=== PATIENT | male | born 1945 | race Caucasian/White ===

== ENCOUNTER 2021-05-23 16:51 | Inpatient (IN) | payer MEDICARE ==
[2021-05-23 17:06] LABS: Glucose,Whole Blood 121 mg/dL (75-99)
[2021-05-23] MEDS ORDERED: HYDROmorphone 1 MG/ML 1 ML SYRINGE IVP STA ×2 (17:15→17:41)
[2021-05-23 17:27] LABS: Basophils % (A) 0 %; Eosinophils # (A) 0.1 k/uL (0-0.7); Eosinophils % (A) 2 %; HCT 43.4 % (39.0-53.0); Lymphocytes # (A) 1.5 k/uL (1.0-4.8); Lymphocytes % (A) 19 %; MCH 31.7 pg (25.0-35.0); MCHC 34.7 g/dL (31.0-37.0); MCV 91.3 fL (80.0-100.0); Mean Platelet Volume 6.9; Monocytes # (A) 0.4 k/uL (0-1.0); Monocytes % (A) 5 %; Neutrophils # (A) 5.8 k/uL (1.3-7.7); Neutrophils % (A) 73 %; Platelet Count 166 k/uL (150-450); RBC 4.75 m/uL (4.30-5.90)
--- NOTE | 2021-05-23 17:32 | XR ---
Result: History: Pain status post fall. Comparison: None available. Technique: A single frontal radiograph of the pelvis was reviewed. Findings: There is displaced and varus angulated left femoral intertrochanteric fracture. No evidence of disloc ation. The left pubic rami are suboptimally evaluated due to overlapping structures. 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 Lower lumbar spine fusion noted. Impression: Left femoral intertrochanteric fracture.
--- NOTE | 2021-05-23 17:34 | XR ---
EXAMINATION TYPE: XR chest 1V portable DATE OF EXAM: 05/23/2021 COMPARISON: NONE HISTORY: Pain status post fall. TECHNIQUE: Single frontal view of the chest is obtained. FINDINGS: There is no focal air space opacity, pleural effusion, or pneumothorax seen. The cardiac silhouette size is within normal limits. The osseous structures are without acute abnormality. Bila teral shoulder arthroplasties are noted. Partially imaged presumed neurostimulator device seen. IMPRESSION: No acute process.
[2021-05-23 17:40] LABS: INR 0.9 (<1.2); Partial Thromboplastin Time 23.7 sec (22.0-30.0); Prothrombin Time 10.2 sec (9.0-12.0)
[2021-05-23 17:41] LABS: Albumin 3.9 g/dL (3.5-5.0); Calcium 8.8 mg/dL (8.4-10.2); Total Bilirubin 0.4 mg/dL (0.2-1.3); Total Protein 6.3 g/dL (6.3-8.2)
--- NOTE | 2021-05-23 17:41 | ED ---
Fall HPI - General Chief Complaint: Fall Stated Complaint: Fall Time Seen by Provider: 05/23/21 17:01 Source: patient, family, EMS Mode of arrival: EMS - History of Present Illness Initial Comments: Patient is a 76-year-old male with past history of A. fib, Parkinson's who presents emergency room after a fall. Patient was stepping into his garage when he fell down 2 stairs on to the concrete. Patient hit his head. He is on [place]. No loss of consciousness. Patient complains of left hip pain. He was unable to bear weight and EMS was called. They placed the patient is c- collar and provided him with 100 mg of fentanyl. Patient arrives and denies any headaches or visual changes. No neck pain. Denies any chest pain or shortness of breath. No abdominal pain. No pain in his upper extreme is. Admits to left hip pain however denies any knee or ankle pain. No numbness or tingling in his feet. No other alleviating, precipitating or modifying factors - Related Data Home Medications Medication Instructions Recorded Confirmed ALPRAZolam [Xanax] 1 mg PO HS PRN 05/23/21 05/23/21 Apixaban [Eliquis] 5 mg PO BID 05/23/21 05/23/21 Escitalopram [Lexapro] 20 mg PO DAILY 05/23/21 05/23/21 Losartan [Cozaar] 25 mg PO DAILY 05/23/21 05/23/21 Metoprolol Succinate [Toprol XL] 50 mg PO DAILY 05/23/21 05/23/21 Propafenone HCl [Propafenone HCl 325 mg PO Q12H 05/23/21 05/23/21 ER] Sennosides [Senna] 8.6 mg PO DAILY PRN 05/23/21 05/23/21 Simvastatin [Zocor] 20 mg PO HS 05/23/21 05/23/21 Allergies Allergy/AdvReac Type Severity Reaction Status Date / Time No Known Allergies Allergy Verified 05/23/21 19:40 Review of Systems ROS Statement: Those systems with pertinent positive or pertinent negative responses have been documented in the HPI. ROS Other: All systems not noted in ROS Statement are negative. Past Medical History Past Medical History: Atrial Fibrillation, Hyperlipidemia Additional Past Medical History / Comment(s): parkinsons History of Any Multi-Drug Resistant Organisms: None Reported Past Surgical History: Appendectomy, Orthopedic Surgery Additional Past Surgical History / Comment(s): shoulder surgery, back surgery, kidney stone removal, deep brain stimulation. Past Psychological History: Anxiety Smoking Status: Former smoker Past Alcohol Use History: None Reported Past Drug Use History: None Reported General Exam Limitations: no limitations Course Vital Signs 05/23/21 05/23/21 16:55 20:21 Temperature 98.4 F 97.8 F Pulse Rate 78 Respiratory 18 16 Rate Blood Pressure 109/94 O2 Sat by Pulse 97 97 Oximetry Medical Decision Making - Medical Decision Making Upon arrival the patient was placed in room 7. Thorough history and physical exam was performed. IV is established by EMS and they did give him 100 g of fentanyl. Patient is additionally given 1 mg of Dilaudid. Laboratory says were conducted. Chest and pelvic x-ray were performed which demonstrates a left IT fracture. Patient is additionally sent for a CT of his head and cervical spine because of his head injury which demonstrates no acute fracture dislocation. No mass effect, midline shift or hemorrhage. I did speak with neck branch from orthopedics. Recommended CT the patient's hip which continues to demonstrate a left femoral IT fracture. Patient remains neurovascularly intact. He'll be admitted to Dr. Santa at this time. Patient made nothing by mouth at midnight. Pain control ordered. Patient transferred to the floor in stable condition - Lab Data Result diagrams: 05/23/21 17:20 05/23/21 17:20 Lab Results 05/23/21 05/23/21 05/23/21 Range/Units 17:04 17:09 17:20 WBC 8.0 (3.8-10.6) k/uL RBC 4.75 (4.30-5.90) m/uL Hgb 15.0 (13.0-17.5) gm/dL Hct 43.4 (39.0-53.0) % MCV 91.3 (80.0-100.0) fL MCH 31.7 (25.0-35.0) pg MCHC 34.7 (31.0-37.0) g/dL RDW 13.0 (11.5-15.5) % Plt Count 166 (150-450) k/uL MPV 6.9 Neutrophils % 73 % Lymphocytes % 19 % Monocytes % 5 % Eosinophils % 2 % Basophils % 0 % Neutrophils # 5.8 (1.3-7.7) k/uL Lymphocytes # 1.5 (1.0-4.8) k/uL Monocytes # 0.4 (0-1.0) k/uL Eosinophils # 0.1 (0-0.7) k/uL Basophils # 0.0 (0-0.2) k/uL PT (9.0-12.0) sec INR (<1.2) APTT (22.0-30.0) sec Sodium (137-145) mmol/L Potassium (3.5-5.1) mmol/L Chloride (98-107) mmol/L Carbon Dioxide (22-30) mmol/L Anion Gap mmol/L BUN (9-20) mg/dL Creatinine (0.66-1.25) mg/dL Est GFR (CKD-EPI)AfAm (>60 ml/min/1.73 sqM) Est GFR (CKD-EPI)NonAf (>60 ml/min/1.73 sqM) Glucose (74-99) mg/dL POC Glucose (mg/dL) 121 H (75-99) mg/dL POC Glu Freight Tallier ID Tab, Carrol Calcium (8.4-10.2) mg/dL Total Bilirubin (0.2-1.3) mg/dL AST (17-59) U/L ALT (4-49) U/L Alkaline Phosphatase (38-126) U/L Troponin I (0.000-0.034) ng/mL Total Protein (6.3-8.2) g/dL Albumin (3.5-5.0) g/dL Blood Type A Positive Blood Type Recheck No Previous Record Bld Type Recheck Status CABO Indicated Antibody Screen NEGATIVE Spec Expiration Date 05/26/2021 - 230805/23/21 05/23/21 05/23/21 Range/Units 17:20 17:20 17:20 WBC (3.8-10.6) k/uL RBC (4.30-5.90) m/uL Hgb (13.0-17.5) gm/dL Hct (39.0-53.0) % MCV (80.0-100.0) fL MCH (25.0-35.0) pg MCHC (31.0-37.0) g/dL RDW (11.5-15.5) % Plt Count (150-450) k/uL MPV Neutrophils % % Lymphocytes % % Monocytes % % Eosinophils % % Basophils % % Neutrophils # (1.3-7.7) k/uL Lymphocytes # (1.0-4.8) k/uL Monocytes # (0-1.0) k/uL Eosinophils # (0-0.7) k/uL Basophils # (0-0.2) k/uL PT 10.2 (9.0-12.0) sec INR 0.9 (<1.2) APTT 23.7 (22.0-30.0) sec Sodium 140 (137-145) mmol/L Potassium 4.0 (3.5-5.1) mmol/L Chloride 110 H (98-107) mmol/L Carbon Dioxide 21 L (22-30) mmol/L Anion Gap 9 mmol/L BUN 21 H (9-20) mg/dL Creatinine 1.29 H (0.66-1.25) mg/dL Est GFR (CKD-EPI)AfAm 62 (>60 ml/min/1.73 sqM) Est GFR (CKD-EPI)NonAf 54 (>60 ml/min/1.73 sqM) Glucose 140 H (74-99) mg/dL POC Glucose (mg/dL) (75-99) mg/dL POC Glu Freight Tallier ID Calcium 8.8 (8.4-10.2) mg/dL Total Bilirubin 0.4 (0.2-1.3) mg/dL AST 29 (17-59) U/L ALT 35 (4-49) U/L Alkaline Phosphatase 111 (38-126) U/L Troponin I <0.012 (0.000-0.034) ng/mL Total Protein 6.3 (6.3-8.2) g/dL Albumin 3.9 (3.5-5.0) g/dL Blood Type Blood Type Recheck Bld Type Recheck Status Antibody Screen Spec Expiration Date - EKG Data EKG Comments: EKG demonstrates significant baseline artifact due to stimulator. Rate of 78. QRS 90. QTC of 442. No acute ST segment elevations or depressions Disposition Clinical Impression: Fall, Blunt head trauma, Closed left hip fracture Disposition: ADMITTED IP TO THIS HOSP Condition: Stable Is patient prescribed a controlled substance at d/c from ED?: No Decision to Admit Reason: Admit from EC Decision Date: 05/23/21 Decision Time: 19:08
--- NOTE | 2021-05-23 18:56 | CT ---
EXAMINATION TYPE: CT brain nickieine liliana con DATE OF EXAM: 05/23/2021 COMPARISON: None available. HISTORY: Pain status post fall. CT DLP: 1617.4 mGycm Automated exposure control for dose reduction was used. TECHNIQUE: CT scan of the head and cervical spine are performed without contrast. FINDINGS: There is no acute intracranial hemorrhage, mass effect, or midline shift identified. The ventricles and sulci are within normal limits in size. There is mild parenchymal volume loss. White matter is grossly preserved. Bilateral intracranial probes/monitoring devices terminating in the late ral ventricles seen. The globes are intact. The visualized sinuses demonstrate small to moderate size d right maxillary sinus mucus retention cyst. Cervical spine is visualized in its entirety from C1 through upper thoracic levels and demonstrates s atisfactory alignment without evidence of acute fracture or dislocation. There is moderate C5-C7 spon dylosis. Prevertebral soft tissue appears within normal limits. The C1-C2 articulation is unremarkab le. IMPRESSION: 1. There is no acute fracture or dislocation evident in the cervical spine. 2. No acute intracranial hemorrhage, mass effect, or midline shift is seen.
[2021-05-23] MEDS ORDERED: KETOROLAC 15 MG/ML 1 ML VIAL IVP STA (18:59)
[2021-05-23] MEDS ORDERED: DIAZEPAM 5 MG/ML 2 ML INJ IVP STA (18:59)
--- NOTE | 2021-05-23 18:59 | CT ---
Result: History: Follow-up pain status post fall. Comparison: Same-day radiographs. Technique: Noncontrast axial CT images of the left hip were obtained with images provided in bone and soft tissue algorithm. Coronal and sagittal reformats were provided and reviewed. Automated dose c ontrol was used for this exam. Findings: The bone mineralization is age-appropriate. There is displaced and varus angulated left femoral intertrochanteric fracture with 3.5 cm lesser tro chanteric fracture fragment. No evidence of dislocation. There is mild osteoarthritis of the left hip . There is soft tissue edema about the fracture site. Limited evaluation of the intrapelvic structures demonstrate no significant acute abnormality. Impression: Left femoral intertrochanteric fracture .
[2021-05-23] MEDS ORDERED: NALOXONE 0.4 MG/ML 1 ML VIAL IV PRN (19:08)
--- NOTE | 2021-05-23 20:49 | XR ---
RESULT: HISTORY: fall TECHNIQUE: 2 views of the left femur were obtained. COMPARISON: Earlier same day radiographs. FINDINGS: There is redemonstration of displaced and varus angulated left femoral intratrochanteric fracture in similar alignment compared to the prior radiographs. Otherwise no new abnormality seen. IMPRESSION: As above.
[2021-05-23] MEDS: HYDROmorphone 1 MG/ML 1 ML SYRINGE IVP PRN (22:04)
[2021-05-24] MEDS: HYDROmorphone 1 MG/ML 1 ML SYRINGE IVP PRN ×6 (01:46→23:10)
[2021-05-24] MEDS ORDERED: ALPRAZolam 1 MG TAB PO PRN (02:05)
--- NOTE | 2021-05-24 02:10 | P.CONS ---
History of Present Illness - Reason for Consult Consult date: 05/23/21 - History of Present Illness The patient is a 76-year-old male with a PMH of A. agnes on Eliquis, Parkinson's, and hyperlipidemia was brought into the emergency room after a fall. The patient was stepping out into his driveway when he tripped and fell to stairs down onto the concrete on his left hip. He also hit his head. Denied losing consciousness. He was unable to stand up or bear weight. His immediately activated EMS. At time of interview, the patient reported ongoing left hip pain, 5 out of 10. He denied headaches, visual disturbance, weakness, numbness, tingling. He denied chest discomfort, shortness of breath, fever, chills, cough, abdominal pain, nausea, vomiting. The patient is independent in all his ADLs and is able to walk up a flight of stairs without difficulty. In the emergency room hip x-ray revealed a left femoral intertrochanteric fracture. Chest x-ray was unremarkable. Head/cervical spine CT was unremarkable. EKG revealed sinus rhythm at 78 bpm with a left anterior fascicular block. Laboratory evaluation was remarkable for BUN 21, creatinine 1.29, glucose 140, troponin less than 0.012. Review of systems: Pertinent positives and negatives as discussed in HPI, a complete review of systems was performed and all other systems are negative. Physical examination: General: non toxic, no distress, appears at stated age, overweight Derm: no unusual rashes/lesions no unusual ecchymoses, warm, dry Head: atraumatic, normocephalic, symmetric Eyes: EOMI, no lid lag, anicteric sclera, pupils equal round reactive to light ENT: Nose and ears atraumatic, no thrush, no pharyngeal erythema Neck: No thyromegaly, no cervical lymphadenopathy, trachea midline, supple Mouth: no lip lesion, mucus membranes moist Cardiovascular: S1S2 reg, no murmur, positive posterior tibial pulse bilateral, no edema, capillary refill less than 2 seconds Lungs: CTA bilateral, no rhonchi, no rales , no accessory muscle use Abdominal: soft, nontender to palpation, no guarding, no appreciable org anomegaly, normal bowel sounds Ext: no gross muscle atrophy, muscle strength 5 out of 5 in all 4 extremities grossly except left lower extremity due to pain, no contractures, no left hip skin abnormalities noted Neuro: CN II-XI grossly intact, light touch intact all 4 extremities, bilateral resting hand tremor noted Psych: Alert, oriented, appropriate affect Assessment/plan Left femoral fracture -Patient is a low to moderate risk for postoperative cardiac consultations with RCRI score of 0 -The patient has a deep brain stimulator for Parkinson's, which can be turned off remotely via device at the bedside -Defer further management to surgical service including pain control and DVT prophylaxis -Hold Eliquis in anticipation of surgery in a.m. Kidney injury, acute vs chronic -C/w gentle hydration and monitor for now Chronic conditions: Hypertension, hyperlipidemia -Continue with home meds We appreciate this opportunity to be involved in this patient's care. We will follow the patient with you. For any further questions, please not hesitate to contact the [facility] inpatient team. Past Medical History Past Medical History: Atrial Fibrillation, Hyperlipidemia Additional Past Medical History / Comment(s): parkinsons History of Any Multi-Drug Resistant Organisms: None Reported Past Surgical History: Appendectomy, Orthopedic Surgery Additional Past Surgical History / Comment(s): shoulder surgery, back surgery, kidney stone removal, deep brain stimulation. Past Psychological History: Anxiety Smoking Status: Former smoker Past Alcohol Use History: None Reported Past Drug Use History: None Reported Medications and Allergies Home Medications Medication Instructions Recorded Confirmed Type ALPRAZolam [Xanax] 1 mg PO HS PRN 05/23/21 05/23/21 History Apixaban [Eliquis] 5 mg PO BID 05/23/21 05/23/21 History Escitalopram [Lexapro] 20 mg PO DAILY 05/23/21 05/23/21 History Losartan [Cozaar] 25 mg PO DAILY 05/23/21 05/23/21 History Metoprolol Succinate [Toprol XL] 50 mg PO DAILY 05/23/21 05/23/21 History Propafenone HCl [Propafenone HCl 325 mg PO Q12H 05/23/21 05/23/21 History ER] Sennosides [Senna] 8.6 mg PO DAILY PRN 05/23/21 05/23/21 History Simvastatin [Zocor] 20 mg PO HS 05/23/21 05/23/21 History Allergies Allergy/AdvReac Type Severity Reaction Status Date / Time No Known Allergies Allergy Verified 05/23/21 19:40 Physical Exam Vitals: Vital Signs Temp Pulse Resp BP Pulse Ox 05/23/21 20:21 97.8 F 16 97 05/23/21 16:55 98.4 F 78 18 109/94 97 Intake and Output 05/23/21 05/23/21 05/24/21 14:59 22:59 06:59 Output Total 300 Balance -300 Output: Urine 300 Uretheral (Rubio) 300 Other: Voiding Method Indwelling Catheter Weight 102.058 kg Results CBC & Chem 7: 05/23/21 17:20 05/23/21 17:20 Labs: Abnormal Lab Results - Last 24 Hours (Table) 05/23/21 05/23/21 Range/Units 17:04 17:20 Chloride 110 H (98-107) mmol/L Carbon Dioxide 21 L (22-30) mmol/L BUN 21 H (9-20) mg/dL Creatinine 1.29 H (0.66-1.25) mg/dL Glucose 140 H (74-99) mg/dL POC Glucose (mg/dL) 121 H (75-99) mg/dL
[2021-05-24] MEDS: PROPAFENONE HCL 325 MG PO SCH ×2 (03:55→14:13)
[2021-05-24] MEDS ORDERED: SODIUM CHLORIDE 0.9% 1,000 ML IV SCH (04:30)
[2021-05-24 06:53] LABS: Basophils % (A) 0 %; Eosinophils % (A) 0 %; HCT 40.7 % (39.0-53.0); HGB 13.7 gm/dL (13.0-17.5); Lymphocytes # (A) 1.2 k/uL (1.0-4.8); Lymphocytes % (A) 12 %; MCH 31.1 pg (25.0-35.0); MCHC 33.6 g/dL (31.0-37.0); MCV 92.6 fL (80.0-100.0); Mean Platelet Volume 6.9; Monocytes # (A) 0.7 k/uL (0-1.0); Monocytes % (A) 7 %; Neutrophils # (A) 7.9 k/uL (1.3-7.7); Neutrophils % (A) 80 %; Platelet Count 173 k/uL (150-450); RBC 4.39 m/uL (4.30-5.90); RDW 13.1 % (11.5-15.5); WBC 9.9 k/uL (3.8-10.6)
[2021-05-24 07:00] LABS: African American GFR (CKD) 62 (>60 ml/min/1.73 sqM); Anion Gap 7 mmol/L; Blood Urea Nitrogen 26 mg/dL (9-20); Calcium 8.6 mg/dL (8.4-10.2); Carbon Dioxide 25 mmol/L (22-30); Chloride 109 mmol/L (98-107); Glucose 129 mg/dL (74-99); Non-African American GFR(CKD) 54 (>60 ml/min/1.73 sqM); Potassium 4.4 mmol/L (3.5-5.1); Sodium 141 mmol/L (137-145)
[2021-05-24] MEDS: LOSARTAN 25 MG TAB PO SCH (07:14)
[2021-05-24] MEDS: METOPROLOL SUCCINATE (ER) 50 MG TAB.ER.24H PO SCH (07:14)
[2021-05-24] MEDS: ESCITALOPRAM 20 MG TAB PO SCH (07:14)
--- NOTE | 2021-05-24 09:42 | P.HPOR ---
History of Present Illness H&P Date: 05/24/21 Chief Complaint: Displaced and comminuted left intertrochanteric femur fracture Patient is a 76-year-old male who was brought to [facility] on 05/23/2021 for evaluation of the left lower extremity injury. Patient was going from his kitchen to his garage, he turned around to shut the door and tripped and fell directly onto his left side. He was unable to weight-bear after the injury, EMS was contacted. Upon arrival to the hospital, imaging and lab tests were done, images demonstrated a displaced and comminuted left intertrochanteric femur fracture. Patient did his head during the fall, he did not lose consciousness. He is on oral anticoagulation for A. fib, the CT of the head/neck region demonstrated no acute processes. I was contacted by the emergency room staff and able to review the case, I was able to discuss with my attending Dr. Sheffield. Patient was admitted under our care with plan for likely surgical intervention. Internal medicine was placed on consult for clearance along with medical management. Patient was examined today at bedside on the medical/surgical floor, his is present. He is resting comfortably in the hospital bed, he appears to be in no acute distress. He notes discomfort in the left lower extremity with movement. He denies any pain of the right lower extremity, bilateral upper extremities, new onset cervical, thoracic or lumbar pain. He does have a history of bilateral total shoulder replacements. He also has a history of a previous lumbar fusion. Currently patient denies any headaches, lightheadedness, chest pain, shortness of breath, nausea vomiting, fever or chills, abdominal discomfort, loss of bowel or bladder function, genital or perineal region numbness or tingling. Review of Systems Constitutional: Reports as per HPI Past Medical History Past Medical History: Atrial Fibrillation, Hyperlipidemia Additional Past Medical History / Comment(s): parkinsons History of Any Multi-Drug Resistant Organisms: None Reported Past Surgical History: Appendectomy, Orthopedic Surgery Additional Past Surgical History / Comment(s): shoulder surgery, back surgery, kidney stone removal, deep brain stimulation. Past Psychological History: Anxiety Smoking Status: Former smoker Past Alcohol Use History: None Reported Past Drug Use History: None Reported Medications and Allergies Home Medications Medication Instructions Recorded Confirmed Type ALPRAZolam [Xanax] 1 mg PO HS PRN 05/23/21 05/23/21 History Apixaban [Eliquis] 5 mg PO BID 05/23/21 05/23/21 History Escitalopram [Lexapro] 20 mg PO DAILY 05/23/21 05/23/21 History Losartan [Cozaar] 25 mg PO DAILY 05/23/21 05/23/21 History Metoprolol Succinate [Toprol XL] 50 mg PO DAILY 05/23/21 05/23/21 History Propafenone HCl [Propafenone HCl 325 mg PO Q12H 05/23/21 05/23/21 History ER] Sennosides [Senna] 8.6 mg PO DAILY PRN 05/23/21 05/23/21 History Simvastatin [Zocor] 20 mg PO HS 05/23/21 05/23/21 History Allergies Allergy/AdvReac Type Severity Reaction Status Date / Time No Known Allergies Allergy Verified 05/23/21 19:40 Physical Examination Left lower extremity: No obvious open lesions or sores are present throughout the extremity, there is no significant areas of erythema or soft tissue swelling There is obvious shortening and external rotation of the left lower extremity when compared to the right Patient is tender with palpation of the proximal femur, logroll maneuver reproduces pain, he is unable to straight leg raise Patient is nontender surrounding the right knee, lower leg, foot/ankle Hip flexion, knee flexion and knee extension was not assessed, plantarflexion, dorsiflexion, EHL, FHL are intact. His sensory exam to light touch is intact throughout the extremity Calf is soft, no tenderness with palpation Dorsalis pedis pulses 2+ General orthopedic exam: Patient is nontender with palpation in the midline and paraspinal regions of the cervical, thoracic and lumbar spine There is no point tenderness appreciated throughout the bilateral upper extremities Range of motion in all major muscle groups of the bilateral upper extremities is intact, no significant strength deficits appreciated No open lesions or sores are visualized throughout the right lower extremity, logroll maneuver reproduces no pain, he can straight leg raise. Hip flexion, knee extension, knee flexion, plantar flexion, dorsiflexion, EHL, FHL are intact Sensory exam to light touch throughout the right lower extremity is intact, calf is soft, no tenderness with palpation. Dorsalis pedis pulses 2+ Results - Labs Labs: Abnormal Lab Results - Last 24 Hours (Table) 05/23/21 05/23/21 05/24/21 Range/Units 17:04 17:20 06:26 Neutrophils # 7.9 H (1.3-7.7) k/uL Chloride 110 H (98-107) mmol/L Carbon Dioxide 21 L (22-30) mmol/L BUN 21 H (9-20) mg/dL Creatinine 1.29 H (0.66-1.25) mg/dL Glucose 140 H (74-99) mg/dL POC Glucose (mg/dL) 121 H (75-99) mg/dL 05/24/21 Range/Units 06:26 Neutrophils # (1.3-7.7) k/uL Chloride 109 H (98-107) mmol/L Carbon Dioxide (22-30) mmol/L BUN 26 H (9-20) mg/dL Creatinine 1.30 H (0.66-1.25) mg/dL Glucose 129 H (74-99) mg/dL POC Glucose (mg/dL) (75-99) mg/dL H & H 05/23/21 05/24/21 Range/Units 17:20 06:26 Hgb 15.0 13.7 (13.0-17.5) gm/dL Hct 43.4 40.7 (39.0-53.0) % Coagulation 05/23/21 Range/Units 17:20 INR 0.9 (<1.2) Result Diagrams: 05/24/21 06:26 05/24/21 06:26 Assessment and Plan Assessment: Displaced and comminuted left intertrochanteric femur fracture Status post fall from standing A. fib Parkinson's disease Other medical comorbidities Plan: Imaging: Images were done on the pelvis along with left hip, including head CT, and femur fractures on the left side. Images demonstrated obvious displacing comminuted left intertrochanteric femur fracture Plan: I was able to discuss with the patient and his is at bedside the plan for surgical intervention, this to include an intramedullary nail of the left femur. Plan is to do this on 05/24/2021. Risk and benefits of the procedure were discussed with the patient, this to include but not exclusive blood loss, neurovascular injury, developmental blood clots, and inadequate healing of bone, need for subsequent surgery, pain and stiffness. Patient is in good understanding and would like to proceed. Obtain consent Continue nothing by mouth diet at this time Pain control, continue use of oral and iv medication as needed Urinary catheter is in place, plan for discontinuation postop day #1 GI and DVT prophylaxis, [place] is on hold, will be restarted on 05/25/2021 Monitor CBC daily, blood products as needed PT/OT evaluation, weight-bear status will be determined after surgery Other medical staff credentialing coordinator recommendation Discharge planning: Likely discharge to subacute rehab in stable
[2021-05-24] MEDS ORDERED: SUCCINYLCHOLINE CHLORIDE 100 MG/5 ML SYR IV ONE (12:10)
[2021-05-24] MEDS ORDERED: HYDROmorphone (PF) 1 MG/ML ONE (12:10)
[2021-05-24] MEDS ORDERED: PROPOFOL 10 MG/ML 20 ML VIAL IV ONE (12:10)
[2021-05-24] MEDS ORDERED: LIDOCAINE 1% INJ 10MG/ML (20 ML MDV) ONE (12:10)
[2021-05-24] MEDS ORDERED: MIDAZOLAM 2 MG/2 ML VIAL ONE (12:10)
[2021-05-24] MEDS ORDERED: fentaNYL (PF) 50 MCG/ML 2 ML AMP ONE (12:10)
[2021-05-24] MEDS ORDERED: ePHEDrine SULFATE/0.9% NACL/PF 50 MG/5 ML SYRINGE IV ONE (12:10)
[2021-05-24] MEDS ORDERED: SODIUM CHLORIDE 0.9% 100 ML with ceFAZolin 2,000 MG IV ONE ×2 (12:17)
[2021-05-24] MEDS ORDERED: IV FLUID CONTINUATION 1,000 ML IV ONE (12:17)
[2021-05-24] MEDS: LACTATED RINGERS 1,000 ML IV SCH (12:24)
[2021-05-24] MEDS ORDERED: LACTATED RINGERS 1,000 ML IV ONE (12:52)
--- NOTE | 2021-05-24 13:25 | P.PN ---
Subjective Progress Note Date: 05/24/21 Patient was seen and evaluated by me this morning. He was laying comfortably in bed. Awaiting orthopedic evaluation. Objective - Vital Signs Vital signs: Vital Signs Temp 97.7 F 05/24/21 07:57 Pulse 77 05/24/21 07:57 Resp 18 05/24/21 07:57 BP 116/63 05/24/21 07:57 Pulse Ox 98 05/24/21 07:57 Intake & Output 05/23/21 05/24/21 05/24/21 18:59 06:59 18:59 Intake Total 500 Output Total 700 Balance -700 500 Weight 102.058 kg 102.058 kg Intake: IV 500 Output: Urine 700 Uretheral (Rubio) 300 Other: Voiding Method Indwelling Catheter - Exam General: The patient is awake and alert, in no distress Eye: there is normal conjunctiva bilaterally. Neck: The neck is supple, there is no JVD. Cardiovascular: Normal S1-S2, no S3-S4, no murmurs. Respiratory: Lungs clear to auscultation bilaterally Gastrointestinal: Abdomen is soft, nontender Musculoskeletal: There is no pedal edema. Neurological:. Speech is normal. Skin: Skin is warm and dry - Labs CBC & Chem 7: 05/24/21 06:26 05/24/21 06:26 Labs: Abnormal Lab Results - Last 24 Hours (Table) 05/23/21 05/23/21 05/24/21 Range/Units 17:04 17:20 06:26 Neutrophils # 7.9 H (1.3-7.7) k/uL Chloride 110 H (98-107) mmol/L Carbon Dioxide 21 L (22-30) mmol/L BUN 21 H (9-20) mg/dL Creatinine 1.29 H (0.66-1.25) mg/dL Glucose 140 H (74-99) mg/dL POC Glucose (mg/dL) 121 H (75-99) mg/dL 05/24/21 Range/Units 06:26 Neutrophils # (1.3-7.7) k/uL Chloride 109 H (98-107) mmol/L Carbon Dioxide (22-30) mmol/L BUN 26 H (9-20) mg/dL Creatinine 1.30 H (0.66-1.25) mg/dL Glucose 129 H (74-99) mg/dL POC Glucose (mg/dL) (75-99) mg/dL Assessment and Plan Assessment: 1. Left femoral fracture, awaiting orthopedic evaluation. 2. Chronic atrial fibrillation on anticoagulation with Eliquis. May resume after surgery 3. Stage IIIB chronic kidney disease, creatinine did not improve with IV fluid hydration since admission. To be baseline for patient. Avoid nephrotoxins. 4. Chronic conditions: Hypertension, hyperlipidemia
[2021-05-24] MEDS ORDERED: ONDANSETRON 4 MG/2 ML VIAL IVP PRN (13:52)
[2021-05-24] MEDS ORDERED: MAGNESIUM HYDROXIDE 2,400 MG/10 ML CUP PO PRN (13:52)
[2021-05-24] MEDS ORDERED: ACETAMINOPHEN TAB 325 MG TAB PO PRN (13:52)
--- NOTE | 2021-05-24 14:02 | P.OP ---
Date of Procedure: 05/24/21 Preoperative Diagnosis: Displaced four-part left intertrochanteric femur fracture Postoperative Diagnosis: Same Procedure(s) Performed: Trochanteric intramedullary nailing left intertrochanteric femur fracture Implants: Radha Gamma , 115 mm compression screw Anesthesia: TORRES Surgeon: Silvano Sheffield [employer] Developer #1: Ghassan Jamison Estimated Blood Loss (ml): 200 Pathology: none sent Condition: stable Disposition: PACU Indications for Procedure: The patient's a 76-year-old male presents after falling injuring his left hip. Upon evaluation he was noted have a significantly displaced/comminuted four-part left intertrochanteric femur fracture. A discussion of the risks and benefits of operative intervention was made with patient and his family. They opted to proceed. Operative risks to include infection, neurovascular injury, development of blood clots, possible development of nonunion/malunion, possible hardware failure and need for subsequent procedures was discussed. Informed consent was obtained. Operative Findings: As below Description of Procedure: The patient was brought to the operating room, and after induction of general anesthesia was placed supine on the Agata table. The fracture was reduced with longitudinal traction along with internal rotation of the left leg. This is verified on the AP and lateral views of fluoroscopy. I was able to obtain reasonable alignment. The left lower extremity was then prepped and draped in normal fashion. A 10 cm incision was then made just proximal to the greater trochanter. Skin and subcutaneous tissues were divided sharply. Electrocautery was used for hemostasis. The gluteus marek fascia was split in line with skin incision. Blunt dissection was then made down to the level of the greater trochanter. There was significant comminution of the greater trochanter. A starting awl was then inserted just along the medial tip of the greater trochanter. This is verified with fluoroscopy. A ball-tipped guidewire was inserted. The canal was reamed up to 12.5 mm. The proximal segment was reamed up to 15.5 mm. A short 125 gamma nail was then gently inserted over the guidewire and then this was removed. A threaded guidepin was placed into the centercenter portion of the femoral head and neck on the AP and lateral views with the aid of fluoroscopy. A triple reamer was used to a depth of 105 mm. A 115 mm compression screw was gently inserted to within 5 millimeters of the articular surface. Traction was then removed. Compression at the screw site was performed. The proximal derotation screw was inserted. The dynamic distal locking screw was then placed utilizing the alignment guide. Good purchase was obtained. Final fluoroscopic view showed adequate reduction of this complex fracture pattern and placement of the implant. This is verified on the AP and lateral views. Wounds were irrigated with normal saline. The fascia was closed with running 0 Vicryl suture. The subcu tissues were reapproximated interrupted 2-0 Vicryl sutures. Skin was reprepped with sepideh. A sterile dressing was applied. The patient was then awoken from general anesthesia and transferred to recovery room in stable condition. No complications were incurred. Sponge and needle counts were correct at the end the case. Estimated blood loss was 200 mL. Bhaskar PELAYO assisted during the major components the case to include positioning, exposure, reduction, and closure.
--- NOTE | 2021-05-24 14:38 | XR ---
EXAMINATION TYPE: XR femur LT, FL guidance operating room DATE OF EXAM: 05/24/2021 COMPARISON: Left femur 05/23/2021 HISTORY: Hip fracture Fluoroscopy support supplied to the referring clinician. See dictated report from orthopedic surgery . 2 minutes 2 seconds fluoroscopy support supplied to the referring clinician, 5 intraoperative C-arm images document the procedure
[2021-05-24] MEDS: SENNOSIDES-DOCUSATE SODIUM 1 EACH TAB PO SCH (20:08)
[2021-05-24] MEDS: ATORVASTATIN 10 MG TAB PO SCH (20:08)
[2021-05-25] MEDS: PROPAFENONE HCL 325 MG PO SCH (01:41)
[2021-05-25] MEDS: HYDROcodone/APAP 7.5-325MG 1 EACH TAB PO PRN ×4 (01:46→23:59)
[2021-05-25] MEDS: LACTATED RINGERS 1,000 ML IV SCH (01:50)
[2021-05-25] MEDS ORDERED: HYDROmorphone 0.5 MG/0.5 ML SYRINGE IVP PRN (07:00)
[2021-05-25 08:07] LABS: African American GFR (CKD) 50 (>60 ml/min/1.73 sqM); Anion Gap 9 mmol/L; Blood Urea Nitrogen 37 mg/dL (9-20); Calcium 7.9 mg/dL (8.4-10.2); Carbon Dioxide 20 mmol/L (22-30); Chloride 108 mmol/L (98-107); Glucose 107 mg/dL (74-99); Non-African American GFR(CKD) 43 (>60 ml/min/1.73 sqM); Potassium 4.2 mmol/L (3.5-5.1); Sodium 137 mmol/L (137-145)
[2021-05-25 08:32] LABS: Basophils % (A) 0 %; Eosinophils % (A) 0 %; HCT 32.4 % (39.0-53.0); HGB 11.2 gm/dL (13.0-17.5); Lymphocytes # (A) 1.4 k/uL (1.0-4.8); Lymphocytes % (A) 15 %; MCH 31.8 pg (25.0-35.0); MCHC 34.5 g/dL (31.0-37.0); MCV 92.1 fL (80.0-100.0); Mean Platelet Volume 7.5; Monocytes # (A) 0.9 k/uL (0-1.0); Monocytes % (A) 10 %; Neutrophils # (A) 6.9 k/uL (1.3-7.7); Neutrophils % (A) 74 %; Platelet Count 159 k/uL (150-450); RBC 3.51 m/uL (4.30-5.90); RDW 13.2 % (11.5-15.5); WBC 9.4 k/uL (3.8-10.6)
[2021-05-25] MEDS: ESCITALOPRAM 20 MG TAB PO SCH (09:04)
[2021-05-25] MEDS: APIXABAN 5 MG TAB PO SCH ×2 (09:04→20:36)
[2021-05-25] MEDS: METOPROLOL SUCCINATE (ER) 50 MG TAB.ER.24H PO SCH (09:04)
[2021-05-25] MEDS: LOSARTAN 25 MG TAB PO SCH (09:04)
--- NOTE | 2021-05-25 09:45 | P.PN ---
Subjective Progress Note Date: 05/25/21 Principal diagnosis: Status post intramedullary nail left intertrochanteric femur fracture Patient was evaluated today at bedside, he is resting in his hospital bed. He is eager to get up with physical therapy. His pain is well-controlled. Urinary catheter still in place. Patient denies any headaches, lightheadedness, chest pain or shortness of breath. Objective - Vital Signs Vital signs: Vital Signs Temp 98.4 F 05/25/21 07:13 Pulse 77 05/25/21 07:13 Resp 20 05/25/21 07:13 BP 130/81 05/25/21 07:13 Pulse Ox 97 05/25/21 07:13 Intake & Output 05/24/21 05/25/21 05/25/21 18:59 06:59 18:59 Intake Total 1300 1580 Output Total 600 400 Balance 700 1180 Intake: IV 1300 Intake, IV Titration 780 Amount Lactated Ringers 1,000 ml 80 @ 20 mls/hr IV .Q24H [facility] Rx#:[id number] Sodium Chloride 0.9% 1, 600 000 ml @ 75 mls/hr IV . [id number] [facility] Rx#:[id number] ceFAZolin 2 gm In Sodium 100 Chloride 0.9% 50 ml @ 100 mls/hr IVPB Q8HR [facility] Rx# :[id number] Oral 800 Output: Urine 400 400 Estimated Blood Loss 200 Other: Voiding Method Indwelling Catheter # Voids 3 - Exam Left lower extremity: Incision is clean, dry, and intact. The sepideh are in good condition. There is minimal soft tissue swelling and ecchymosis surrounding the medial and lateral aspects of the incision. Calf is soft, no tenderness with palpation. Plantar flexion, dorsiflexion, EHL, FHL are intact. Sensory exam to light touch throughout the extremity is intact, dorsal pedis pulses 2+. - Labs CBC & Chem 7: 05/25/21 07:11 05/25/21 07:11 Labs: Abnormal Lab Results - Last 24 Hours (Table) 05/25/21 05/25/21 Range/Units 07:11 07:11 RBC 3.51 L (4.30-5.90) m/uL Hgb 11.2 L (13.0-17.5) gm/dL Hct 32.4 L (39.0-53.0) % Chloride 108 H (98-107) mmol/L Carbon Dioxide 20 L (22-30) mmol/L BUN 37 H (9-20) mg/dL Creatinine 1.55 H (0.66-1.25) mg/dL Glucose 107 H (74-99) mg/dL Calcium 7.9 L (8.4-10.2) mg/dL Assessment and Plan Assessment: Postoperative day #1 status post intramedullary nail left intertrochanteric femur fracture Plan: Pain control, continue supportive oral medication GI and DVT prophylaxis, Jose was 5 mg twice a day has been restarted Encourage incentive spirometer 50% weightbearing with walker PT/OT evaluation Wound care instructions were discussed Medical recommendations Discharge planning: Depending on outpatient progresses with physical therapy, may consider discharged to home with home health services versus subacute rehab Time with Patient: Less than 30
--- NOTE | 2021-05-25 09:49 | P.PN ---
Subjective Progress Note Date: 05/25/21 Patient is doing fairly well this morning. He had a transient episode of tingling in his left lower extremity around 4 AM that lasted couple of minutes then resolved. He denies any numbness or tingling this morning. He is awaiting physical therapy evaluation. Objective - Vital Signs Vital signs: Vital Signs Temp 98.4 F 05/25/21 07:13 Pulse 77 05/25/21 07:13 Resp 20 05/25/21 07:13 BP 130/81 05/25/21 07:13 Pulse Ox 97 05/25/21 07:13 Intake & Output 05/24/21 05/25/21 05/25/21 18:59 06:59 18:59 Intake Total 1300 1580 Output Total 600 400 Balance 700 1180 Intake: IV 1300 Intake, IV Titration 780 Amount Lactated Ringers 1,000 ml 80 @ 20 mls/hr IV .Q24H [facility] Rx#:[id number] Sodium Chloride 0.9% 1, 600 000 ml @ 75 mls/hr IV . [id number] [facility] Rx#:[id number] ceFAZolin 2 gm In Sodium 100 Chloride 0.9% 50 ml @ 100 mls/hr IVPB Q8HR [facility] Rx# :[id number] Oral 800 Output: Urine 400 400 Estimated Blood Loss 200 Other: Voiding Method Indwelling Catheter # Voids 3 - Exam General: The patient is awake and alert, in no distress Eye: there is normal conjunctiva bilaterally. Neck: The neck is supple, there is no JVD. Cardiovascular: Normal S1-S2, no S3-S4, no murmurs. Respiratory: Lungs clear to auscultation bilaterally Gastrointestinal: Abdomen is soft, nontender Musculoskeletal: There is no pedal edema. Neurological:. Speech is normal. Skin: Skin is warm and dry - Labs CBC & Chem 7: 05/25/21 07:11 05/25/21 07:11 Labs: Abnormal Lab Results - Last 24 Hours (Table) 05/25/21 05/25/21 Range/Units 07:11 07:11 RBC 3.51 L (4.30-5.90) m/uL Hgb 11.2 L (13.0-17.5) gm/dL Hct 32.4 L (39.0-53.0) % Chloride 108 H (98-107) mmol/L Carbon Dioxide 20 L (22-30) mmol/L BUN 37 H (9-20) mg/dL Creatinine 1.55 H (0.66-1.25) mg/dL Glucose 107 H (74-99) mg/dL Calcium 7.9 L (8.4-10.2) mg/dL Assessment and Plan Assessment: This is a 76-year-old male with past medical history noted below who presented to the emergency room after he sustained a mechanical fall at home. He should was evaluated in the ER and admitted to the hospital for further management of his medical problems noted below. 1. Left femoral fracture, status post trochanteric intramedullary nailling. Postoperative care, pain control, and DVT prophylaxis per orthopedic 2. Chronic atrial fibrillation on anticoagulation with Eliquis. 3. Stage IIIB chronic kidney disease, creatinine did not improve with IV fluid hydration since admission. To be baseline for patient. Avoid nephrotoxins. 4. Chronic conditions: Hypertension, hyperlipidemia, underlying Parkinson's disease status post stimulator placement (following at [facility]) Today, I reviewed his medication list and lab work results. I reassured the patient and his not to worry about transient tingling episode as it may be related to surgery. We will continue to monitor closely. PT/OT evaluation. Discharge planning per primary team.
[2021-05-25] MEDS ORDERED: SODIUM CHLORIDE 0.9% 500 ML 500 ML IV ONE (10:37)
[2021-05-25] MEDS: PROPAFENONE 225 MG TAB PO SCH ×3 (11:31→23:55)
[2021-05-25] MEDS: HYDROmorphone 1 MG/ML 1 ML SYRINGE IVP PRN ×2 (14:02→19:17)
[2021-05-25] MEDS: ATORVASTATIN 10 MG TAB PO SCH (20:36)
[2021-05-25] MEDS: SENNOSIDES-DOCUSATE SODIUM 1 EACH TAB PO SCH (20:36)
[2021-05-26] MEDS: HYDROcodone/APAP 7.5-325MG 1 EACH TAB PO PRN ×2 (07:58→16:02)
[2021-05-26] MEDS: PROPAFENONE 225 MG TAB PO SCH ×3 (07:59→22:11)
[2021-05-26] MEDS: LOSARTAN 25 MG TAB PO SCH (07:59)
[2021-05-26] MEDS: ESCITALOPRAM 20 MG TAB PO SCH (07:59)
[2021-05-26] MEDS: METOPROLOL SUCCINATE (ER) 50 MG TAB.ER.24H PO SCH (07:59)
[2021-05-26] MEDS: APIXABAN 5 MG TAB PO SCH ×2 (07:59→20:04)
--- NOTE | 2021-05-26 09:39 | P.PN ---
Subjective Progress Note Date: 05/26/21 Principal diagnosis: Status post intramedullary nail left intertrochanteric femur fracture Patient was evaluated today at bedside, he is resting in his hospital bed. Patient did get up with physical therapy yesterday. Patient was doing with some hypotension when ambulating, he has received some fluid boluses. He is still eager to return home. His pain is well-controlled. Patient denies any headaches, lightheadedness, chest pain or shortness of breath. Objective - Vital Signs Vital signs: Vital Signs Temp 98 F 05/26/21 07:11 Pulse 60 05/26/21 07:11 Resp 16 05/26/21 07:11 BP 107/66 05/26/21 07:11 Pulse Ox 100 05/26/21 07:11 Intake & Output 05/25/21 05/26/21 05/26/21 18:59 06:59 18:59 Intake Total 1250 Output Total 700 225 Balance 550 -225 Intake: Intake, IV Titration 1250 Amount Sodium Chloride 0.9% 1, 750 000 ml @ 75 mls/hr IV . [id number] [facility] Rx#:[id number] Sodium Chloride 0.9% 500 500 ml 500 ml @ 999 mls/hr IV .Q31M [facility] Rx#:[id number] Output: Urine 700 225 Uretheral (Rubio) 700 Other: Voiding Method Indwelling Catheter Urinal - Exam Left lower extremity: Incision is clean, dry, and intact. The sepideh are in good condition. There is minimal soft tissue swelling and ecchymosis surrounding the medial and lateral aspects of the incision. Calf is soft, no tenderness with palpation. Plantar flexion, dorsiflexion, EHL, FHL are intact. Sensory exam to light touch throughout the extremity is intact, dorsal pedis pulses 2+. - Labs CBC & Chem 7: 05/25/21 07:11 05/25/21 07:11 Assessment and Plan Assessment: Postoperative day #2 status post intramedullary nail left intertrochanteric femur fracture Acute blood loss anemia, expected surgical outcome Plan: Pain control, continue supportive oral medication GI and DVT prophylaxis, Eliquis 5 mg twice a day has been restarted Ferrous sulfate 325 mg twice a day for anemia Encourage incentive spirometer 50% weightbearing with walker PT/OT evaluation Wound care instructions were discussed Medical recommendations Discharge planning: Continue to monitor patient, hopeful discharge home tomorrow Time with Patient: Less than 30
[2021-05-26] MEDS ORDERED: LACTULOSE 20 GM/30 ML CUP PO ONE (11:00)
[2021-05-26] MEDS: HYDROmorphone 1 MG/ML 1 ML SYRINGE IVP PRN ×3 (11:13→20:03)
--- NOTE | 2021-05-26 13:29 | P.PN ---
Subjective Progress Note Date: 05/26/21 Patient is doing well today. He was working with physical therapy when I saw him. He reports feeling exhausted after getting up and walking around. Objective - Vital Signs Vital signs: Vital Signs Temp 98 F 05/26/21 07:11 Pulse 60 05/26/21 07:11 Resp 16 05/26/21 07:11 BP 107/66 05/26/21 07:11 Pulse Ox 100 05/26/21 07:11 Intake & Output 05/25/21 05/26/21 05/26/21 18:59 06:59 18:59 Intake Total 1250 Output Total 700 225 350 Balance 550 -225 -350 Intake: Intake, IV Titration 1250 Amount Sodium Chloride 0.9% 1, 750 000 ml @ 75 mls/hr IV . [id number] [facility] Rx#:[id number] Sodium Chloride 0.9% 500 500 ml 500 ml @ 999 mls/hr IV .Q31M [facility] Rx#:[id number] Output: Urine 700 225 350 Uretheral (Rubio) 700 Other: Voiding Method Indwelling Catheter Urinal - Exam General: The patient is awake and alert, in no distress Eye: there is normal conjunctiva bilaterally. Neck: The neck is supple, there is no JVD. Cardiovascular: Normal S1-S2, no S3-S4, no murmurs. Respiratory: Lungs clear to auscultation bilaterally Gastrointestinal: Abdomen is soft, nontender Musculoskeletal: There is no pedal edema. Neurological:. Speech is normal. Skin: Skin is warm and dry - Labs CBC & Chem 7: 05/25/21 07:11 05/25/21 07:11 Assessment and Plan Assessment: This is a 76-year-old male with past medical history noted below who presented to the emergency room after he sustained a mechanical fall at home. He should was evaluated in the ER and admitted to the hospital for further management of his medical problems noted below. 1. Left femoral fracture, status post trochanteric intramedullary nailling. Postoperative care, pain control, and DVT prophylaxis per orthopedic 2. Chronic atrial fibrillation on anticoagulation with Eliquis. 3. Stage IIIB chronic kidney disease, creatinine did not improve with IV fluid hydration since admission. Appeared To be baseline for patient. Avoid nephrotoxins. 4. Chronic conditions: Hypertension, hyperlipidemia, underlying Parkinson's disease status post stimulator placement (following at [facility]) Today, I reviewed his medication list and lab work results. Continue PT/OT evaluation. Plan for placement for subacute rehab possibly tomorrow.
[2021-05-26] MEDS: LACTATED RINGERS 1,000 ML IV SCH (14:30)
[2021-05-26] MEDS: FERROUS SULFATE 325 MG TAB PO SCH ×2 (16:01→20:04)
[2021-05-26] MEDS: ATORVASTATIN 10 MG TAB PO SCH (20:04)
[2021-05-26] MEDS: SENNOSIDES-DOCUSATE SODIUM 1 EACH TAB PO SCH (20:04)
[2021-05-27] MEDS: HYDROcodone/APAP 7.5-325MG 1 EACH TAB PO PRN ×4 (02:06→21:39)
--- NOTE | 2021-05-27 05:57 | P.CONS ---
History of Present Illness - Chief Complaint Walking difficulty - History of Present Illness I had the opportunity to see patient for inpatient rehab consultation with regard to walking difficulty. Patient admitted to [facility] May 23 history of falling down concrete steps, 2, resultant left hip pain. Evaluated and found to have left comminuted intertrochanteric fracture. Underwent male by Dr. Tristan jacinto. Seen medically by Dr. Mcghee and Amy. Workup included x-rays and CT. CT of head demonstrated only right maxillary retention cyst. C-spine CT with spondylosis C5-7. Started therapies. PT reports two-person total assistance for bed and mobility. OT reports minimal assistance for upper dressing and total assistance for lower dressing and toileting and moderate assistance for bathing. 2 person moderate assistance for toilet transfers. Previous functional history as elicited from patient: 76-year-old right-handed white male who is lives in one floor home with and daughter. Patient and retired and daughter does not work. does cooking and driving and daughter does laundry. Patient describes previously independent with standing shower and gait without device. PCP Dr. Heriberto torres. Denies tobacco has occasional beer. Review of Systems Review of systems: ENT: Denies sneezes or discharge. Eyes: Denies discharge or photophobia. Cardiac: Denies chest pain or palpitation. Pulmonary: Denies cough or shortness of breath. Gastrointestinal: Denies nausea, emesis, constipation, diarrhea. Genitourinary: Denies discharge or frequency. Musculoskeletal: Left hip discomfort. Neurologic: Parkinson's. Endocrine: Denies shakes or sweats. Oncology: Denies cancers. Dermatologic: Denies rash, itching, pruritus. ALLERGY/immunology: Denies sneezes, rashes. Past Medical History Past Medical History: Atrial Fibrillation, Hyperlipidemia Additional Past Medical History / Comment(s): parkinsons History of Any Multi-Drug Resistant Organisms: None Reported Past Surgical History: Appendectomy, Orthopedic Surgery Additional Past Surgical History / Comment(s): shoulder surgery, back surgery, kidney stone removal, deep brain stimulation. Past Psychological History: Anxiety Smoking Status: Former smoker Past Alcohol Use History: None Reported Past Drug Use History: None Reported Medications and Allergies Home Medications Medication Instructions Recorded Confirmed Type ALPRAZolam [Xanax] 1 mg PO HS PRN 05/23/21 05/23/21 History Apixaban [Eliquis] 5 mg PO BID 05/23/21 05/23/21 History Escitalopram [Lexapro] 20 mg PO DAILY 05/23/21 05/23/21 History Losartan [Cozaar] 25 mg PO DAILY 05/23/21 05/23/21 History Metoprolol Succinate [Toprol XL] 50 mg PO DAILY 05/23/21 05/23/21 History Propafenone HCl [Propafenone HCl 325 mg PO Q12H 05/23/21 05/23/21 History ER] Sennosides [Senna] 8.6 mg PO DAILY PRN 05/23/21 05/23/21 History Simvastatin [Zocor] 20 mg PO HS 05/23/21 05/23/21 History Allergies Allergy/AdvReac Type Severity Reaction Status Date / Time No Known Allergies Allergy Verified 05/23/21 19:40 Physical Exam Vitals: Vital Signs Temp Pulse Resp BP Pulse Ox 05/27/21 02:19 98.6 F 77 17 132/65 96 05/26/21 20:07 97.5 F L 74 16 137/75 94 L 05/26/21 14:00 98.3 F 76 20 111/63 93 L 05/26/21 07:11 98 F 60 16 107/66 100 Intake and Output 05/26/21 05/26/21 05/27/21 14:59 22:59 06:59 Intake Total 540 Output Total 350 400 375 Balance -350 140 -375 Intake: Oral 540 Output: Urine 350 400 375 Other: Voiding Method Urinal Skin: Atrophic, intact. General: Medium build and comfortable appearance. Head: Normocephalic, atraumatic. Eyes: Symmetric. Pupils equal round. Ears: Symmetric. Hearing within normal limits. Mouth: Clear. Neck: Supple. Carotid without bruit. Cardiac: Regular rate and rhythm. Lungs: Clear anteriorly and posteriorly. Abdomen: Soft active nontender. Extremities: Normal tone. Neurological: Mental status: Alert, cooperative, pleasant. Cranial nerves: Symmetric facial tone and trapezius. Motor: Active movement all 4 limbs but less than antigravity legs. Rigidity noted all limbs. Sensation: Intact throughout. DTRs: Symmetric and equal throughout. Mobility: Requires physical assist for bed mobility. Results CBC & Chem 7: 05/25/21 07:11 05/25/21 07:11 Assessment and Plan (1) Blunt head trauma Current Visit: Yes Status: Acute Code(s): S09.8XXA - OTHER SPECIFIED INJURIES OF HEAD, INITIAL ENCOUNTER SNOMED Code(s): 00216062 (2) Closed left hip fracture Current Visit: Yes Status: Acute Code(s): S72.002A - FRACTURE OF UNSP PART OF NECK OF LEFT FEMUR, INIT SNOMED Code(s): 193814696 Plan: Impression: 1. Walking difficulty. 2. Left hip IT fracture status post repair. 3. History of head injury. 4. Parkinson. Comments and plan: At this time PT and OT are ongoing. Patient currently two- person assistance for any functional mobility. Discharge plan may be return to home must determine if this is actually [place] plan.
[2021-05-27] MEDS: METOPROLOL SUCCINATE (ER) 50 MG TAB.ER.24H PO SCH (07:33)
[2021-05-27] MEDS: ESCITALOPRAM 20 MG TAB PO SCH (07:35)
[2021-05-27] MEDS: FERROUS SULFATE 325 MG TAB PO SCH ×2 (07:35→18:14)
[2021-05-27] MEDS: PROPAFENONE 225 MG TAB PO SCH ×3 (07:35→20:21)
[2021-05-27] MEDS: APIXABAN 5 MG TAB PO SCH ×2 (07:35→20:20)
--- NOTE | 2021-05-27 10:49 | P.PN ---
Subjective Progress Note Date: 05/27/21 Principal diagnosis: Status post intramedullary nail left intertrochanteric femur fracture Patient was evaluated today at bedside, he is resting in his hospital bed. Patient's is present today at bedside. There are concerns with him going home at this time, he is needing a lot assistance when getting out of bed and ambulation. We did discuss the possibility of subacute rehab today at bedside with family. Patient denies any headaches, lightheadedness, chest pain or s hortness of breath. Objective - Vital Signs Vital signs: Vital Signs Temp 97.6 F 05/27/21 08:00 Pulse 71 05/27/21 08:00 Resp 18 05/27/21 08:00 BP 116/73 05/27/21 08:00 Pulse Ox 99 05/27/21 08:00 Intake & Output 05/26/21 05/27/21 05/27/21 18:59 06:59 18:59 Intake Total 540 Output Total 650 475 Balance -110 -475 Intake: Oral 540 Output: Urine 650 475 Other: Voiding Method Urinal Urinal - Exam Left lower extremity: Incision is clean, dry, and intact. The sepideh are in good condition. There is minimal soft tissue swelling and ecchymosis surrounding the medial and lateral aspects of the incision. Calf is soft, no tenderness with palpation. Plantar flexion, dorsiflexion, EHL, FHL are intact. Sensory exam to light touch throughout the extremity is intact, dorsal pedis pulses 2+. - Labs CBC & Chem 7: 05/25/21 07:11 05/25/21 07:11 Assessment and Plan Assessment: Postoperative day #3 status post intramedullary nail left intertrochanteric femur fracture Acute blood loss anemia, expected surgical outcome Plan: Pain control, continue supportive oral medication GI and DVT prophylaxis, Eliquis 5 mg twice a day has been restarted Ferrous sulfate 325 mg twice a day for anemia Encourage incentive spirometer 50% weightbearing with walker PT/OT evaluation Wound care instructions were discussed Medical recommendations Discharge planning: After discussion with the family and patient, our plan is for discharge to subacute rehab on 05/28/2021 Time with Patient: Less than 30
[2021-05-27] MEDS: HYDROmorphone 1 MG/ML 1 ML SYRINGE IVP PRN ×3 (11:25→20:15)
--- NOTE | 2021-05-27 16:27 | P.PN ---
Subjective Progress Note Date: 05/27/21 Patient is doing well today. He was able to ambulate a few steps around the room today with physical therapy. Objective - Vital Signs Vital signs: Vital Signs Temp 98 F 05/27/21 15:19 Pulse 81 05/27/21 15:19 Resp 18 05/27/21 15:19 BP 143/78 05/27/21 15:19 Pulse Ox 96 05/27/21 15:19 Intake & Output 05/26/21 05/27/21 05/27/21 18:59 06:59 18:59 Intake Total 540 Output Total 650 475 Balance -110 -475 Intake: Oral 540 Output: Urine 650 475 Other: Voiding Method Urinal Urinal - Exam General: The patient is awake and alert, in no distress Eye: there is normal conjunctiva bilaterally. Neck: The neck is supple, there is no JVD. Cardiovascular: Normal S1-S2, no S3-S4, no murmurs. Respiratory: Lungs clear to auscultation bilaterally Gastrointestinal: Abdomen is soft, nontender Musculoskeletal: There is no pedal edema. Neurological:. Speech is normal. Skin: Skin is warm and dry - Labs CBC & Chem 7: 05/25/21 07:11 05/25/21 07:11 Assessment and Plan Assessment: This is a 76-year-old male with past medical history noted below who presented to the emergency room after he sustained a mechanical fall at home. He should was evaluated in the ER and admitted to the hospital for further management of his medical problems noted below. 1. Left femoral fracture, status post trochanteric intramedullary nailling. Postoperative care, pain control, and DVT prophylaxis per orthopedic 2. Chronic atrial fibrillation on anticoagulation with Eliquis. 3. Stage IIIB chronic kidney disease, creatinine did not improve with IV fluid hydration since admission. Appeared To be baseline for patient. Avoid nephrotoxins. 4. Chronic conditions: Hypertension, hyperlipidemia, underlying Parkinson's disease status post stimulator placement (following at [facility]) Today, I reviewed his medication list and lab work results. Continue PT/OT evaluation. Plan for placement for subacute per primary team
[2021-05-27] MEDS: ATORVASTATIN 10 MG TAB PO SCH (20:20)
[2021-05-27] MEDS: SENNOSIDES-DOCUSATE SODIUM 1 EACH TAB PO SCH (20:20)
[2021-05-27] MEDS ORDERED: CYCLOBENZAPRINE 10 MG TAB PO SCH (21:00)
[2021-05-27] MEDS: LACTATED RINGERS 1,000 ML IV SCH (21:55)
[2021-05-28] MEDS: HYDROmorphone 1 MG/ML 1 ML SYRINGE IVP PRN ×3 (04:43→13:36)
[2021-05-28] MEDS: HYDROcodone/APAP 7.5-325MG 1 EACH TAB PO PRN ×2 (05:49→11:55)
[2021-05-28] MEDS: PROPAFENONE 225 MG TAB PO SCH (08:33)
[2021-05-28] MEDS: APIXABAN 5 MG TAB PO SCH (08:33)
[2021-05-28] MEDS: ESCITALOPRAM 20 MG TAB PO SCH (08:33)
[2021-05-28] MEDS: FERROUS SULFATE 325 MG TAB PO SCH (08:33)
[2021-05-28] MEDS: METOPROLOL SUCCINATE (ER) 50 MG TAB.ER.24H PO SCH (08:34)
--- NOTE | 2021-05-28 09:39 | P.PN ---
Subjective Progress Note Date: 05/28/21 Principal diagnosis: Status post intramedullary nail left intertrochanteric femur fracture Patient was evaluated today at bedside, he is resting in his hospital bed. Patient's is present today at bedside. Patient denies any headaches, lightheadedness, chest pain or shortness of breath. Objective - Vital Signs Vital signs: Vital Signs Temp 97.8 F 05/28/21 07:48 Pulse 67 05/28/21 07:48 Resp 16 05/28/21 07:48 BP 110/65 05/28/21 07:48 Pulse Ox 95 05/28/21 07:48 Intake & Output 05/27/21 05/28/21 05/28/21 18:59 06:59 18:59 Intake Total 1080 Output Total 700 Balance 1080 -700 Intake: Tube Feeding 1080 Output: Urine 700 Other: Voiding Method Urinal Urinal Urinal # Voids 4 - Exam Left lower extremity: Incision is clean, dry, and intact. The sepideh are in good condition. There is minimal soft tissue swelling and ecchymosis surrounding the medial and lateral aspects of the incision. Calf is soft, no tenderness with palpation. Plantar flexion, dorsiflexion, EHL, FHL are intact. Sensory exam to light touch throughout the extremity is intact, dorsal pedis pulses 2+. - Labs CBC & Chem 7: 05/25/21 07:11 05/25/21 07:11 Assessment and Plan Assessment: Postoperative day #4 status post intramedullary nail left intertrochanteric femur fracture Acute blood loss anemia, expected surgical outcome Plan: Pain control, plan for discharge and Ideal 7.5 mg/325 mg GI and DVT prophylaxis, Eliquis 5 mg twice a day has been restarted Ferrous sulfate 325 mg twice a day for anemia Encourage incentive spirometer 50% weightbearing with walker PT/OT evaluation Wound care instructions were discussed Medical recommendations Discharge planning: plan to discharge to rehab today Time with Patient: Less than 30
--- NOTE | 2021-05-28 09:53 | P.DS ---
Providers Date of admission: 05/23/21 19:08 Expected date of discharge: 05/28/21 Attending physician: Silvano Sheffield Consults: 05/23/21 19:09 Consult Physician Urgent Consulting Provider: Anitha Mcghee Consult Reason/Comments: fall, concussion without loc, left hip fracture Do you want consulting provider notified?: Yes 05/26/21 13:45 Consult Physician Routine Consulting Provider: Bhaskar Espinosa Consult Reason/Comments: evaluation for IPR Do you want consulting provider notified?: Yes Primary care physician: Physician Nonstaff Hospital Course: Date of admission: 05/23/2021 Date of discharge: 05/28/2021 Admission diagnosis: Displaced and comminuted intertrochanteric femur fracture Discharge diagnosis: Status post intramedullary nail left intertrochanteric femur fracture Attending physician: Dr. Sheffield Surgical procedures: Intramedullary nail left intertrochanteric femur fracture Brief history: Patient is a 76-year-old male who presented to [facility] for evaluation of a left lower extremity injury on 05/23/2021. Upon imaging studies, it was determined he had a displaced and comminuted left intertrochanteric femur fracture. Patient was admitted under our orthopedic care with plan for surgical intervention, consults were placed for medical management and clearance. Hospital course: Details of patient's surgery can be found in operative report. Patient tolerated the procedure well and was subsequently transported to orthopedic floor. Patient's orthopeidc and medical care was provided daily. Patient had daily laboratory tests performed for evaluation of overall blood counts. Patient had daily physical therapy to include strengthening range of motion as well as education with walker ambulation. Patient was treated with Eliquis for their postoperative DVT prophylaxis during their inpatient stay. Patient was noted to have a relatively uneventful postoperative course. Patient reported satisfactory pain control with oral pain medications by postoperative day 0. Patient showed satisfactory progress with physical therapy. Patient moved steadily through the program and had no difficulty meeting the goals by postoperative day 4. Given patient's otherwise satisfactory course and having met physical therapy goals, plan is to discharge patient rehab on postoperative day 4. Discharge condition/disposition: Patient will be discharged home in stable condition. Discharge medications: Instructions are given on resumption of patient's normal daily medications per primary care recommendation, in addition patient will be prescribed Patterson 7.5 mg/325 mg, Flexeril 10 mg, Colace 100 mg, ferrous sulfate 325 mg. Discharge instructions: 1. Wound care and infection precautions, keep incision dry and covered while showering, no lotions, creams, moisturizers. No soaking, tubs, pools, hottubs. Do not scrub over the incision. 2. 50% weightbearing with walker 3. Ice and elevate when necessary. Do not exceed 20 minutes per hour with ice pack. 4. Utilize compression sleeve until seen at first follow up appointment. 5. Visiting nursing care. 6. Home physical therapy 7. Pain meds and anticoagulants per prescription. 8. Pain medication has potential to cause constipation. Increase oral fluid and fiber intake. Contact primary care provider if you have not had a bowel movement within 48 hours after discharge 9. No anti-inflammatory medication until discussed at first post operative visit, this including Motrin, Aleve, Mobic, Diclofenac. 10. Follow up in office at 2 weeks postop with Bhaskar Jamison PA-C/Dayo Mendoza 11. Follow up with your primary care doctor 7-10 days after discharge. 12. Contact [facility] with any questions, . Procedures: Intramedullary nail left intertrochanteric femur fracture Patient Condition at Discharge: Stable Plan - Discharge Summary Discharge Rx Participant: Yes New Discharge Prescriptions: New Docusate [Colace] 100 mg PO DAILY #30 capsule Cyclobenzaprine [Flexeril] 10 mg PO HS #30 tab HYDROcodone/APAP 7.5-325MG [Patterson 7.5] 1 each PO Q6HR PRN #42 tab PRN Reason: Pain Ferrous Sulfate [Iron (65 MG Elemental)] 325 mg PO BID #30 tab No Action ALPRAZolam [Xanax] 1 mg PO HS PRN PRN Reason: Insomnia Propafenone HCl [Propafenone HCl ER] 325 mg PO Q12H Apixaban [Eliquis] 5 mg PO BID Escitalopram [Lexapro] 20 mg PO DAILY Losartan [Cozaar] 25 mg PO DAILY Metoprolol Succinate [Toprol XL] 50 mg PO DAILY Sennosides [Senna] 8.6 mg PO DAILY PRN PRN Reason: Constipation Simvastatin [Zocor] 20 mg PO HS Discharge Medication List ALPRAZolam [Xanax] 1 mg PO HS PRN 05/23/21 [History] Apixaban [Eliquis] 5 mg PO BID 05/23/21 [History] Escitalopram [Lexapro] 20 mg PO DAILY 05/23/21 [History] Losartan [Cozaar] 25 mg PO DAILY 05/23/21 [History] Metoprolol Succinate [Toprol XL] 50 mg PO DAILY 05/23/21 [History] Propafenone HCl [Propafenone HCl ER] 325 mg PO Q12H 05/23/21 [History] Sennosides [Senna] 8.6 mg PO DAILY PRN 05/23/21 [History] Simvastatin [Zocor] 20 mg PO HS 05/23/21 [History] Cyclobenzaprine [Flexeril] 10 mg PO HS #30 tab 05/28/21 [Rx] Docusate [Colace] 100 mg PO DAILY #30 capsule 05/28/21 [Rx] Ferrous Sulfate [Iron (65 MG Elemental)] 325 mg PO BID #30 tab 05/28/21 [Rx] HYDROcodone/APAP 7.5-325MG [Patterson 7.5] 1 each PO Q6HR PRN #42 tab 05/28/21 [Rx] Follow up Appointment(s)/Referral(s): [facility], [NON-STAFF] - As Needed Nonstaff,Physician [Primary Care Provider] - 1-2 days Ghassan Jamison PAC [[facility] [employer]] - 2 Weeks Activity/Diet/Wound Care/Special Instructions: Orthopedic discharge instructions: 1. Pain medication as needed 2. Stress sulfate 325 mg twice a day for anemia 3. Stool softeners as needed 4. Keep incisions dry and covered while showering 5. 50% weightbearing with walker 6. Plan for follow-up at [facility] 2 weeks Discharge Disposition: TRANSFER TO SNF/ECF
[2021-05-28 14:42] VITALS: BP 110/65; PULSE 67; RESP 16; TEMP 97.8
--- NOTE | 2021-05-28 15:23 | P.PN ---
Subjective Progress Note Date: 05/28/21 Patient is doing well today. He is looking forward to be discharged to group home for rehab this afternoon. Objective - Vital Signs Vital signs: Vital Signs Temp 97.8 F 05/28/21 07:48 Pulse 67 05/28/21 07:48 Resp 16 05/28/21 07:48 BP 110/65 05/28/21 07:48 Pulse Ox 95 05/28/21 07:48 Intake & Output 05/27/21 05/28/21 05/28/21 18:59 06:59 18:59 Intake Total 1080 Output Total 700 Balance 1080 -700 Intake: Tube Feeding 1080 Output: Urine 700 Other: Voiding Method Urinal Urinal Urinal # Voids 4 - Exam General: The patient is awake and alert, in no distress Eye: there is normal conjunctiva bilaterally. Neck: The neck is supple, there is no JVD. Cardiovascular: Normal S1-S2, no S3-S4, no murmurs. Respiratory: Lungs clear to auscultation bilaterally Gastrointestinal: Abdomen is soft, nontender Musculoskeletal: There is no pedal edema. Neurological:. Speech is normal. Skin: Skin is warm and dry - Labs CBC & Chem 7: 05/25/21 07:11 05/25/21 07:11 Assessment and Plan Assessment: This is a 76-year-old male with past medical history noted below who presented to the emergency room after he sustained a mechanical fall at home. He should was evaluated in the ER and admitted to the hospital for further management of his medical problems noted below. 1. Left femoral fracture, status post trochanteric intramedullary nailling. Postoperative care, pain control, and DVT prophylaxis per orthopedic 2. Chronic atrial fibrillation on anticoagulation with Eliquis. 3. Stage IIIB chronic kidney disease, creatinine did not improve with IV fluid hydration since admission. Appeared To be baseline for patient. Avoid nephrotoxins. 4. Chronic conditions: Hypertension, hyperlipidemia, underlying Parkinson's disease status post stimulator placement (following at [facility]) Today, I reviewed his medication list and lab work results. Patient is medically cleared for discharge. Discontinue home dose of losartan. Monitor blood pressure closely at the group home. Follow-up with PCP as directed.
== END 2021-05-28 15:09 | DRG 481 ==
LOC: EC 16:51 → 4SSUR 19:08
PROVIDERS: ADMIT Orthopaedic Surgery; ATTEND Orthopaedic Surgery
PROC: 0QS746Z Reposition Left Upper Femur with Intramedullary Internal Fixation Device, Percutaneous Endoscopic Approach (ICD-10-PCS; principal; 2021-05-23)
DX: S72.142A Displaced intertrochanteric fracture of left femur, initial encounter for closed fracture (principal); S06.0X9A Concussion with loss of consciousness of unspecified duration, initial encounter; I48.20 Chronic atrial fibrillation, unspecified; D62 Acute posthemorrhagic anemia; G20 Parkinson's disease; I95.9 Hypotension, unspecified; N18.32 Chronic kidney disease, stage 3b; I12.9 Hypertensive chronic kidney disease with stage 1 through stage 4 chronic kidney disease, or unspecified chronic kidney disease; I44.4 Left anterior fascicular block; M47.812 Spondylosis without myelopathy or radiculopathy, cervical region; E78.5 Hyperlipidemia, unspecified; F41.9 Anxiety disorder, unspecified; Z79.01 Long term (current) use of anticoagulants; Z79.899 Other long term (current) drug therapy; Z87.442 Personal history of urinary calculi; Z98.1 Arthrodesis status; Z90.49 Acquired absence of other specified parts of digestive tract; Z87.19 Personal history of other diseases of the digestive system; Z87.39 Personal history of other diseases of the musculoskeletal system and connective tissue; Z98.890 Other specified postprocedural states; Z87.891 Personal history of nicotine dependence; Z96.89 Presence of other specified functional implants; W10.9XXA Fall (on) (from) unspecified stairs and steps, initial encounter; Y92.009 Unspecified place in unspecified non-institutional (private) residence as the place of occurrence of the external cause
CPT/HCPCS: 36415; 70450; 71045; 72125; 72170; 80048; 80053; 84484; 85025; 85610; 85730; 86850; 86900; 86901; 93005; 96374; 96375; 99285